=== PATIENT | female | born 1940 | race Caucasian/White ===

== ENCOUNTER 2019-03-15 06:24 | Day surgery (SDC) | payer MEDICARE, BC ==
[~2019-03-15 06:24] MED LIST: CELECOXIB 100 MG CAPSULE PO ONE; FAMOTIDINE 20MG TABLET PO ONE; MECLIZINE 25 MG TABLET PO ONE; METOCLOPRAMIDE 10 MG TABLET PO ONE; VANCOMYCIN 1GM/200ML PREMIX 1 GM/200 ML PIGGYBACK IVPB ONE
[2019-03-15] MEDS ORDERED: PROPOFOL 10 MG/ML VIAL IV ONE (06:25)
[2019-03-15] MEDS ORDERED: MIDAZOLAM HCL 2MG/2ML VIAL IV ONE (06:25)
[2019-03-15] MEDS ORDERED: ROPIVACAINE HCL (NAROPIN) /PF 5MG/ML 20ML VIAL IV ONE (06:25)
[2019-03-15] MEDS ORDERED: LIDOCAINE 2% MDV (20MG/ML) 20ML VIAL IV ONE (06:25)
[2019-03-15] MEDS ORDERED: DEXAMETHASONE 4 MG/ML 1ML VIAL IVP ONE (06:25)
[2019-03-15 07:43] LABS: ABO GROUP A
[2019-03-15 07:44] LABS: ANTIBODY SCREEN NEGATIVE (NEGATIVE); RH TYPE NEGATIVE
[2019-03-15] MEDS ORDERED: RINGERS SOLUTION,LACTATED 1,000 ML IV ONE ×2 (08:46→09:20)
[2019-03-15] MEDS ORDERED: BUPIVACAINE 0.5% W/EPI MPF 30 ML VIAL SQ ONE (09:12)
[2019-03-15] MEDS ORDERED: HYDROMORPHONE HCL 2 MG/ML VIAL IM PRN (10:25)
[2019-03-15] MEDS ORDERED: ONDANSETRON HCL IV 4 MG/2 ML VIAL IVP PRN (10:25)
[2019-03-15] MEDS ORDERED: NALOXONE 0.4 MG/1 ML VIAL IVP PRN (10:25)
[2019-03-15] MEDS ORDERED: DIPHENHYDRAMINE HCL 25 MG CAPSULE PO PRN (10:25)
[2019-03-15] MEDS ORDERED: BISACODYL 10 MG SUPP RC PRN (10:25)
[2019-03-15] MEDS ORDERED: ACETAMINOPHEN W/ CODEINE 300MG/60MG TABLET PO PRN ×2 (10:25)
[2019-03-15] MEDS ORDERED: ZOLPIDEM TARTRATE 5 MG TABLET PO PRN (10:25)
[2019-03-15] MEDS ORDERED: MAGNESIUM HYDROXIDE 30 ML UDC PO PRN (10:25)
[2019-03-15] MEDS ORDERED: AL HYDROX/MAG HYDROX 30ML UD PO PRN (10:25)
[2019-03-15] MEDS ORDERED: ACETAMINOPHEN 325 MG TAB PO PRN (10:25)
[2019-03-15] MEDS ORDERED: KETOROLAC 30 MG/ML VIAL IVP PRN ×2 (10:25)
[2019-03-15] MEDS ORDERED: HYDROCODONE/APAP 10/325 TABLET PO PRN (10:25)
[2019-03-15] MEDS: POTASSIUM CHLORIDE/D5-0.9%NACL 20 MEQ/1,000 ML BAG IV SCH ×2 (13:05→22:53)
--- NOTE | 2019-03-15 15:36 | Rehab Evaluation ---
Patient Information - Patient Information Diagnosis: R knee DJD Ordered Treatment: PT Evaluate and Treat Status: Initial Evaluation Surgery: Yes (R TKA) Date of Surgery: 03/15/19 Past Medical/Surgical Hx: PAST MEDICAL/SURGICAL HISTORY Past Surgical History PAULA C SCOPES BILAT CATS DENTAL WORK PMH - Respiratory Hx Respiratory Disorders Yes Hx Bronchitis Yes: YRS AGO PMH - Cardiovascular Hx Cardiovascular Disorders Yes Hx Hypertension Yes: ON MEDS WITH GOOD CONTROL Hx Irregular Heartbeat Yes: A FIB POSSIBLY IN THE PAST ON ELIQUIS Exercise Tolerance Fair Comment: D/T KNEE HYPERLIPIDEMIA PMH - Neuro Hx Neurological Disorders No PMH - GI Hx Gastrointestinal Disorders No PMH - Hx Genitourinary Disorders No PMH - Endocrine Hx Endocrine Disorders No PMH - Musculoskeletal Hx Musculoskeletal Disorders Yes Hx Arthritis Yes: KNEES Hx Osteoporosis Yes: POSSIBLY PMH - Psych Hx Psychiatric Problems Yes Hx Anxiety Yes PMH - Hematology/Oncology Hx Hematology/Oncology Yes Disorders Hx Bruising Yes: ON ELIQUIS Hx Blood Transfusion Reaction No Premorbid Status: Detail (The patient was independent with all mobility prior to surgery.) Social History: Detail (The patient lives with spouse in a one story house with one step and a threshold at the enterance and a hand hold. The bathroom is equipped with: a tub/shower combination, handheld shower, shower seat, standard toilet with a riser seat. Grab bars are present in shower but not by toilet. The patient has a walker with wheels and standard cane.) Precautions: [place], Fall, Other (WBAT on the R LE.) - Time With Patient Total Time Spent With Patient (Min): 30 Treatment Procedures: Detail (Initial Evaluation, gait training) Subjective Information - Subjective Information Per Patient (The patient slight complaints of R hip pain) Objective Data - Mental Status Patient Orientation: Oriented x3 - Visual Perception Appears within normal limits for therapeutic activities - ROM Not within normal limits (The patient's R knee AROM is limited as to be expected following surgery. All other LE AROM is WNL.) - Strength/Tone Not within normal limits (The patient's L LE strength was not tested s/p surgery however is functional. R LE strength is WFL.) - Transfers Independent (The patient was independent with sit to and from stand transfer.) - Balance Balance Sitting: Good Balance Standing: Good - Gait Detail (The patient ambulated with front wheeled walker a distance of 40 feet x 1 WBAT on the R LE with supervision for safety only.) Therapy Assessment - Therapy Assessment Detail (The patient was independent with transfers and required supervision for safety only with ambulation. Feel the patient will progress well with mobility.) Problem List - Problem List Physical Therapy Problem List: Detail (Limited L knee AROM and L LE strength) Goals - Goals Physical Therapy Goals: 1)The patient will be independent with bed mobility. 2) The patient will be independent with TKA HEP. 3) The patient will ambulate on stairs with supervision for safety using proper technique. Prognosis - Prognosis Good Plan - Plan Physical Therapy Plan: PT 1-2 times a day for gait training on stairs, bed mobility and instruction in TKA HEP.
[2019-03-15] MEDS: VANCOMYCIN 1GM/200ML PREMIX 1 GM/200 ML PIGGYBACK IVPB SCH (18:36)
[2019-03-15] MEDS: DOCUSATE SODIUM 100 MG CAPSULE PO SCH (21:07)
[2019-03-15] MEDS: METOPROLOL SUCCINATE 100 MG PO SCH (21:09)
[2019-03-15] MEDS ORDERED: ATORVASTATIN 20 MG TABLET PO SCH (22:00)
[2019-03-15] MEDS: HYDROCODONE/APAP 10/325 TABLET PO PRN (22:55)
[2019-03-16] MEDS: HYDROCODONE/APAP 10/325 TABLET PO PRN ×2 (05:42→13:44)
[2019-03-16 06:36] LABS: HEMATOCRIT 37.3 % (35.0-47.0); HEMOGLOBIN 11.6 gm/dl (11.6-16.0)
[2019-03-16 06:47] LABS: BLOOD UREA NITROGEN 15 mg/dL (8-23); CREATININE 0.5 mg/dL (0.5-0.9); EST GLOMERULAR FILTRATION RATE > 60 mL/min; GLUCOSE,RANDOM 161 mg/dL (74-109)
[2019-03-16] MEDS: POTASSIUM CHLORIDE/D5-0.9%NACL 20 MEQ/1,000 ML BAG IV SCH (07:49)
--- NOTE | 2019-03-16 07:52 | Rehab Evaluation ---
Patient Information - Patient Information Diagnosis: R knee DJD Ordered Treatment: OT Evaluate and Treat Status: Initial Evaluation Surgery: Yes (R TKA) Date of Surgery: 03/15/19 Past Medical/Surgical Hx: PAST MEDICAL/SURGICAL HISTORY Past Surgical History PAULA C SCOPES BILAT CATS DENTAL WORK PMH - Respiratory Hx Respiratory Disorders Yes Hx Bronchitis Yes: YRS AGO PMH - Cardiovascular Hx Cardiovascular Disorders Yes Hx Hypertension Yes: ON MEDS WITH GOOD CONTROL Hx Irregular Heartbeat Yes: A FIB POSSIBLY IN THE PAST ON ELIQUIS Exercise Tolerance Fair Comment: D/T KNEE HYPERLIPIDEMIA PMH - Neuro Hx Neurological Disorders No PMH - GI Hx Gastrointestinal Disorders No PMH - Hx Genitourinary Disorders No PMH - Endocrine Hx Endocrine Disorders No PMH - Musculoskeletal Hx Musculoskeletal Disorders Yes Hx Arthritis Yes: KNEES Hx Osteoporosis Yes: POSSIBLY PMH - Psych Hx Psychiatric Problems Yes Hx Anxiety Yes PMH - Hematology/Oncology Hx Hematology/Oncology Yes Disorders Hx Bruising Yes: ON ELIQUIS Hx Blood Transfusion Reaction No Premorbid Status: Detail (The patient was independent with all mobility, meal prep, laundry and home mgmt tasks prior to surgery.) Social History: Detail (The patient lives with spouse in a one story house with one step and a threshold at the entrance and a hand hold. The bathroom is equipped with: a tub/shower combination, handheld shower, shower seat, standard toilet with a riser seat. Grab bars are present in shower but not by toilet. The patient has a walker with wheels and standard cane. Her laundry is in the basement but her spouse will be assisting as needed.) Precautions: [place], Fall, Other (WBAT on the R LE.) - Time With Patient Total Time Spent With Patient (Min): 40 Treatment Procedures: Detail (OT eval low complexity) Subjective Information - Subjective Information Per Patient Objective Data - Pain Pain Present: Yes (2-12/12) - Mental Status Patient Orientation: Oriented x3 - Visual Perception Appears within normal limits for therapeutic activities - ROM Within normal limits (Balta UE AROM WNL) - Strength/Tone Within normal limits (Balta UE strength WNL) - Coordination Appears within normal limits for therapeutic activities - Bed Mobility Independent (Ind with supine to sit) - Transfers Independent (Ind with sit to stand although requires verbal cues for technique at times.) - Balance Balance Sitting: Good Balance Standing: Good - Sensation Intact - Gait Detail (Pt ambulating in room with 2 wheeled walker and SBA) - ADL's/IADL's Detail (Pt educated and demonstrates learning of modified LE dressing techniques including doffing briefs and slipper socks and donning briefs, shorts, socks and tennis shoes. Pt educated on kitchen, laundry and shower safety and modifications, pt verbalized understanding.) Therapy Assessment - Therapy Assessment Detail (Pt is Ind with modified LE dressing techniques.) Problem List - Problem List Physical Therapy Problem List: Detail (Limited L knee AROM and L LE strength) Occupational Therapy Problem List: Detail (No current IP OT problems identified.) Goals - Goals Physical Therapy Goals: 1)The patient will be independent with bed mobility. 2) The patient will be independent with TKA HEP. 3) The patient will ambulate on stairs with supervision for safety using proper technique. Occupational Therapy Goals: No current IP OT goals identified. Prognosis - Prognosis Good Plan - Plan Physical Therapy Plan: PT 1-2 times a day for gait training on stairs, bed mobility and instruction in TKA HEP. Occupational Therapy Plan: No further IP OT recommended. Thank you for this referral.
[2019-03-16] MEDS: VANCOMYCIN 1GM/200ML PREMIX 1 GM/200 ML PIGGYBACK IVPB SCH (08:08)
--- NOTE | 2019-03-16 09:40 | Operative Note ---
DATE OF SURGERY: 03/15/2019 PREOPERATIVE DIAGNOSIS: End-stage arthrosis of the right knee. POSTOPERATIVE DIAGNOSIS: End-stage arthrosis of the right knee. OPERATION: Cemented right total knee arthroplasty using [employer] II components with a size 5 cobalt chrome femur, a size 5 stemmed tibia baseplate, a 9 mm lipped tibial insert, and a 32 mm all plastic patella. STAFF SURGEON: Harmeet Shane MD ANESTHESIA: Spinal. PREPARATION: Chloraprep. INDIVIDUAL CONSIDERATIONS: None. PROCEDURE: The patient was taken to the operating room, placed supine on the operating room table. She had a successful induction of a spinal anesthetic. The right lower extremity was prepped and draped in the usual fashion. The limb was elevated and tourniquet was inflated to 250 mmHg. The patient had a midline approach to the knee. Sharp dissection carried down through skin and subcutaneous tissue. Small veins were coagulated with a Bovie. A medial arthrotomy was performed. The patella was everted and the knee was flexed. The patient had exposed bone in the medial and patellofemoral compartments. Fat pad was resected, ACL was sacrificed, and provisional anterior meniscectomies were performed. The capsule was released from the medial proximal tibia. The initial femoral oversize load pilot escort hole was then made freehand. The intramedullary femoral cutting jig was placed. It was cut in 7.0 degrees of valgus and adjusted for rotation and secured with pins for a 10 mm resection. The initial transverse cut was then made. The skin guide was placed in the anterior and posterior oversize load pilot escort holes. It was found that a size 5 would be appropriate. The anterior and posterior cuts followed by chamfer cuts were made. Osteophytes removed, and a size 5 trial was placed and found to fit well. The tibia was brought forward, and the remainder of the meniscal remnants removed with a Bovie. The extraarticular tibial cutting jig was placed. It was cut in neutral with a 3-degree AP slope. Care was taken to adjustefor rotation and flexion using the extraarticular alignment guide and bony landmarks. It was set for a 9 mm resection keyed off the high lateral side and secured with pins. When cutting the tibia, care was taken to preserve the PCL insertion on the tibia. After removing osteophytes, I could fit a size 5 baseplate trial. It was adjusted for rotation and secured with pins. With a 9 mm trial and femoral trial, there was excellent motion and stability, ligamentous balance, and rotation alignment were thought to be normal. The femoral oversize load pilot escort holes were impacted and the tri-flange tibial stamp was impacted, and these trial components were removed. The patient had about a 22 mm patella, and I was easily able to make a cut compensating for bone loss and cartilage loss leaving about 13-14 mm. This cut was made freehand. I was able to easily fit a 32 patella. The 3 oversize load pilot escort holes were drilled. The knee was then thoroughly irrigated out with pulsatile Betadine and saline to remove any visual or palpable debris. The tourniquet was let down briefly to get bleeders posteriorly and then irrigated again. Bony surfaces were then dried. I went ahead and cemented in a size 5 stemmed tibia baseplate followed by impaction of the 9 mm lipped tibial insert followed by cementing in the size 5 cobalt chrome femur followed by cementing in the 32 mm patella. The implant surfaces were compressed, excess cement was removed. After the cement had set, there was excellent motion and stability, ligamentous balance, rotation alignment, and patellofemoral tracking were normal. No lateral release was required. Again thorough irrigation. Tourniquet was let down. Hemostasis was obtained with a Bovie. The capsule and periosteum then infiltrated with 30 mL of 0.5% Marcaine with epinephrine. The capsule was then closed with a running #2 quill, subcu was closed with running 0 quill, skin was closed with argenis. The patient did receive 1 g of tranexamic acid preoperatively. I mixed 1 g of tranexamic acid with 30 mL of saline and injected into the knee through a sterile 18-gauge needle, and a sterile bulky compressive ROBERT-type dressing was applied. The patient tolerated the procedure well. Needle and sponge counts were correct. Estimated blood loss was minimal, and she was taken back to recovery in good condition. There were no complications. CARMEN
[2019-03-16] MEDS: DOCUSATE SODIUM 100 MG CAPSULE PO SCH (09:41)
[2019-03-16] MEDS: METOPROLOL SUCCINATE 100 MG PO SCH ×2 (09:42→12:42)
[2019-03-16] MEDS ORDERED: MULTIVITAMINS/MINERALS TABLET PO SCH (10:00)
[2019-03-16] MEDS ORDERED: CALCIUM CARBONATE 500 MG TAB.CHEW PO SCH (10:00)
[2019-03-16] MEDS ORDERED: APIXABAN 2.5MG TABLET PO SCH (10:00)
[2019-03-16] MEDS ORDERED: FERROUS SULFATE 325 MG TAB PO SCH (10:00)
--- NOTE | 2019-03-16 11:56 | Physical Therapy Tx Note ---
Physical Therapy Tx Note - Treatment Note Tolerated: Good Total Time Spent With Patient: 30 Physical Therapy Tx Note: Detail (Pt was seated in chair when PT arrived. Pt stated that she had a lot of pain today reporting 6/10 pain. Pt ambulated 80ft with front wheeled walker with contact guard. Pt descended and ascended 3 steps with contact guard assist. Pt was indenpendent with bed mobility and with transfers. PT reviewed HEP with patient. Following treatment patient had no change in pain. Pt was left in bed with ice on her knee and with the call light.) Physical Therapy Problem List: Detail (Limited L knee AROM and L LE strength) Physical Therapy Goals: 1)The patient will be independent with bed mobility. 2) The patient will be independent with TKA HEP. 3) The patient will ambulate on stairs with supervision for safety using proper technique. Prognosis: Good Physical Therapy Plan: PT 1-2 times a day for gait training on stairs, bed mobility and instruction in TKA HEP.
== END 2019-03-16 14:40 | disposition home health service (06) ==
LOC: SUR 06:24 → MEDSURG 11:08 → SUR 03-16 14:40
PROVIDERS: ATTEND Orthopaedic Surgery
DX: M17.11 Unilateral primary osteoarthritis, right knee (principal); I10 Essential (primary) hypertension; Z79.01 Long term (current) use of anticoagulants; E78.00 Pure hypercholesterolemia, unspecified; I48.91 Unspecified atrial fibrillation
CPT/HCPCS: 27447; 01402; 64447; 85018; 85014; 80048; 86900; 86901; 86850; 76942; J3490 ×3; J2795; J3370 ×2; 97110; C1776; J3480; J7120

== ENCOUNTER 2019-06-28 08:40 | Day surgery (SDC) | payer MEDICARE, BC ==
[~2019-06-28 08:40] MED LIST changes: +CEFAZOLIN 2 Gram 2 GM/50 ML BAG IVPB ONE
[2019-06-28] MEDS ORDERED: LIDOCAINE 2% MDV (20MG/ML) 20ML VIAL IV ONE (08:41)
[2019-06-28] MEDS ORDERED: MIDAZOLAM HCL 2MG/2ML VIAL IV ONE (08:41)
[2019-06-28] MEDS ORDERED: PROPOFOL 10 MG/ML VIAL IV ONE (08:41)
[2019-06-28] MEDS ORDERED: DEXAMETHASONE 4 MG/ML 1ML VIAL IVP ONE (08:41)
[2019-06-28] MEDS ORDERED: ROPIVACAINE HCL (NAROPIN) /PF 5MG/ML 20ML VIAL IV ONE (08:41)
[2019-06-28] MEDS ORDERED: RINGERS SOLUTION,LACTATED 1,000 ML IV ONE ×2 (09:45→11:27)
[2019-06-28] MEDS ORDERED: TRANEXAMIC ACID 1,000 MG/10 ML ML IU ONE (11:18)
[2019-06-28] MEDS ORDERED: BUPIVACAINE 0.5% W/EPI MPF 30 ML VIAL SQ ONE (11:18)
[2019-06-28] MEDS ORDERED: TRANEXAMIC ACID 1,000 MG/10 ML ML IV ONE (11:18)
[2019-06-28] MEDS ORDERED: ZOLPIDEM TARTRATE 5 MG TABLET PO PRN (12:06)
[2019-06-28] MEDS ORDERED: MAGNESIUM HYDROXIDE 30 ML UDC PO PRN (12:06)
[2019-06-28] MEDS ORDERED: HYDROCODONE/APAP 10/325 TABLET PO PRN (12:06)
[2019-06-28] MEDS ORDERED: NALOXONE 0.4 MG/1 ML VIAL IVP PRN (12:06)
[2019-06-28] MEDS ORDERED: HYDROMORPHONE HCL 2 MG/ML VIAL IM PRN (12:06)
[2019-06-28] MEDS ORDERED: AL HYDROX/MAG HYDROX 30ML UD PO PRN (12:06)
[2019-06-28] MEDS ORDERED: DIPHENHYDRAMINE HCL 25 MG CAPSULE PO PRN (12:06)
[2019-06-28] MEDS ORDERED: ACETAMINOPHEN W/ CODEINE 300MG/60MG TABLET PO PRN ×2 (12:06)
[2019-06-28] MEDS ORDERED: BISACODYL 10 MG SUPP RC PRN (12:06)
[2019-06-28] MEDS ORDERED: ACETAMINOPHEN 325 MG TAB PO PRN (12:06)
[2019-06-28] MEDS ORDERED: KETOROLAC 30 MG/ML VIAL IVP PRN (12:06)
[2019-06-28] MEDS ORDERED: ONDANSETRON HCL IV 4 MG/2 ML VIAL IVP PRN (12:06)
[2019-06-28] MEDS ORDERED: TRAMADOL HCL 50 MG TABLET PO PRN (12:06)
[2019-06-28] MEDS ORDERED: FLU VAC QS 2019-20 (INPT, 6MO+) 60MCG/0.5ML IM ONE (13:30)
[2019-06-28 14:03] LABS: ABO GROUP A; RH TYPE NEGATIVE
[2019-06-28 14:04] LABS: ANTIBODY SCREEN NEGATIVE (NEGATIVE)
--- NOTE | 2019-06-28 14:12 | Rehab Evaluation ---
Patient Information - Patient Information Diagnosis: L knee DJD Ordered Treatment: PT Evaluate and Treat Status: Initial Evaluation Surgery: Yes (L TKA) Date of Surgery: 06/28/19 Past Medical/Surgical Hx: PAST MEDICAL/SURGICAL HISTORY Past Surgical History RTKA 03-15-19 PAULA PÉREZ BILAT CATS DENTAL WORK PMH - Respiratory Hx Respiratory Disorders Yes Hx Bronchitis Yes: YRS AGO PMH - Cardiovascular Hx Cardiovascular Disorders Yes Hx Hypertension Yes: ON MEDS WITH GOOD CONTROL Hx Irregular Heartbeat Yes: A FIB POSSIBLY IN THE PAST ON ELIQUIS Exercise Tolerance Fair Comment: D/T KNEE HYPERLIPIDEMIA PMH - Neuro Hx Neurological Disorders No PMH - GI Hx Gastrointestinal Disorders No PMH - Hx Genitourinary Disorders No PMH - Endocrine Hx Endocrine Disorders No Hx Diabetes No Hx Thyroid Disease No PMH - Musculoskeletal Hx Musculoskeletal Disorders Yes Hx Arthritis Yes: KNEES Hx Osteoporosis Yes: POSSIBLY PMH - Psych Hx Psychiatric Problems Yes Hx Anxiety Yes PMH - Hematology/Oncology Hx Hematology/Oncology Yes Disorders Hx Bruising Yes: ON ELIQUIS Hx Blood Transfusion Reaction No Premorbid Status: Detail (The patient was independent with all mobility prior to surgery.) Social History: Detail (The patient lives with spouse in a 1 story house with 2 steps at the enterance and no handrails. The bathroom is equipped with: a tub/shower combination, hand held shower, standard height toilet. Grab bars are present by the shower but not toilet. The patient's is getting a shower seat and a toilet riser seat. The patient has a front wheeled walker and standard cane.) Precautions: [place], Fall, Other (WBAT on the L LE.) - Time With Patient Treatment Procedures: Detail (Initial Evaluation low complexity) Subjective Information - Subjective Information Per Patient (The patient had complaints of L knee pain. The patient did not rate her pain using the 0-10 pain scale.) Objective Data - Mental Status Patient Orientation: Oriented x3 - Visual Perception Appears within normal limits for therapeutic activities - ROM Not within normal limits (The patient's L knee is limited s/p surgery. All other LE AROM is WNL.) - Strength/Tone Not within normal limits (The patient's L LE strength was not formally tested however was functional ie: patient was able to lift L LE in and out of bed. The patient's R LE strength was WNL.) - Bed Mobility Independent (The patient was independent with supine to and from sit transfer and scooting up in bed.) - Transfers Independent (The patient was independent with sit to and from stand transfer.) - Balance Balance Sitting: Good Balance Standing: Good - Sensation Intact - Gait Detail (The patient ambulated with front wheeled walker WBAT on the L LE with supervision for safety 50 feet x 1.) Therapy Assessment - Therapy Assessment Detail (The patient was independent with bed mobility and transfers. It is anticipated that the patient will complete her inpatient PT goals in 1-2 sessions.) Problem List - Problem List Physical Therapy Problem List: Detail ( Decreased L LE strength and L knee AROM.) Goals - Goals Physical Therapy Goals: 1) The patient will be independent with TKA HEP. 2) The patient will ambulate household distances WBAT on the L LE independently. 3) The patient will ambulate on stairs using proper technique with supervision for safety. Prognosis - Prognosis Good Plan - Plan Physical Therapy Plan: PT for 1-2 sessions for gait training on levels and stairs and instruction in HEP.
[2019-06-28] MEDS: HYDROCODONE/APAP 10/325 TABLET PO PRN ×2 (15:10→21:24)
[2019-06-28] MEDS: POTASSIUM CHLORIDE/D5-0.9%NACL 20 MEQ/1,000 ML BAG IV SCH ×2 (15:15→23:53)
[2019-06-28] MEDS: CEFAZOLIN 2 Gram 2 GM/50 ML BAG IVPB SCH (18:34)
[2019-06-28] MEDS: DOCUSATE SODIUM 100 MG CAPSULE PO SCH (21:24)
[2019-06-28] MEDS ORDERED: ATORVASTATIN 20 MG TABLET PO SCH (22:00)
[2019-06-29] MEDS: CEFAZOLIN 2 Gram 2 GM/50 ML BAG IVPB SCH ×2 (02:22→10:43)
[2019-06-29] MEDS: HYDROCODONE/APAP 10/325 TABLET PO PRN ×3 (02:24→14:28)
[2019-06-29] MEDS: POTASSIUM CHLORIDE/D5-0.9%NACL 20 MEQ/1,000 ML BAG IV SCH (05:40)
[2019-06-29 06:39] LABS: HEMATOCRIT 40.6 % (35.0-47.0); HEMOGLOBIN 12.6 gm/dl (11.6-16.0)
[2019-06-29 06:51] LABS: BLOOD UREA NITROGEN 20 mg/dL (8-23); CREATININE 0.6 mg/dL (0.5-0.9); EST GLOMERULAR FILTRATION RATE > 60 mL/min; GLUCOSE,RANDOM 150 mg/dL (74-109)
[2019-06-29] MEDS: DOCUSATE SODIUM 100 MG CAPSULE PO SCH (09:26)
--- NOTE | 2019-06-29 09:59 | Physical Therapy Tx Note ---
Physical Therapy Tx Note - Treatment Note Tolerated: Good Total Time Spent With Patient: 20 Physical Therapy Tx Note: Detail (Patient stated that she was having some pain in the L knee today. She ambulated 60 feet with WBAT on the L LE with supervision. Patient was independent in completing her HEP, and correctly demonstrated HEP exercises. Patient was not able to complete stair training this morning due to pain, so she will be seen this afternoon to complete stair t raining to be discharged from inpatient therapy. Patient was left in the bed with her call light and bedside table within reach. The nursing staff was notified of her position.) Physical Therapy Problem List: Detail ( Decreased L LE strength and L knee AROM.) Physical Therapy Goals: 1) The patient will be independent with TKA HEP. GOAL MET. 2) The patient will ambulate household distances WBAT on the L LE independently. GOAL MET. 3) The patient will ambulate on stairs using proper technique with supervision for safety. Prognosis: Good Physical Therapy Plan: PT for 1-2 sessions for gait training on levels and stairs and instruction in HEP.
[2019-06-29] MEDS ORDERED: METOPROLOL SUCC 50 MG TABLET PO SCH (10:00)
[2019-06-29] MEDS ORDERED: APIXABAN 2.5MG TABLET PO SCH (10:00)
[2019-06-29] MEDS ORDERED: CALCIUM CARBONATE 500 MG TAB.CHEW PO SCH (10:00)
[2019-06-29] MEDS ORDERED: FERROUS SULFATE 325 MG TAB PO SCH (10:00)
[2019-06-29] MEDS ORDERED: MULTIVITAMINS/MINERALS TABLET PO SCH (10:00)
--- NOTE | 2019-06-29 10:38 | Rehab Evaluation ---
Patient Information - Patient Information Diagnosis: L knee DJD Ordered Treatment: OT Evaluate and Treat Status: Initial Evaluation Surgery: Yes (L TKA) Date of Surgery: 06/28/19 Past Medical/Surgical Hx: PAST MEDICAL/SURGICAL HISTORY Past Surgical History RTKA 03-15-19 PAULA PÉREZ BILAT CATS DENTAL WORK PMH - Respiratory Hx Respiratory Disorders Yes Hx Bronchitis Yes: YRS AGO PMH - Cardiovascular Hx Cardiovascular Disorders Yes Hx Hypertension Yes: ON MEDS WITH GOOD CONTROL Hx Irregular Heartbeat Yes: A FIB POSSIBLY IN THE PAST ON ELIQUIS Exercise Tolerance Fair Comment: D/T KNEE HYPERLIPIDEMIA PMH - Neuro Hx Neurological Disorders No PMH - GI Hx Gastrointestinal Disorders No PMH - Hx Genitourinary Disorders No PMH - Endocrine Hx Endocrine Disorders No Hx Diabetes No Hx Thyroid Disease No PMH - Musculoskeletal Hx Musculoskeletal Disorders Yes Hx Arthritis Yes: KNEES Hx Osteoporosis Yes: POSSIBLY PMH - Psych Hx Psychiatric Problems Yes Hx Anxiety Yes PMH - Hematology/Oncology Hx Hematology/Oncology Yes Disorders Hx Bruising Yes: ON ELIQUIS Hx Blood Transfusion Reaction No Premorbid Status: Detail (The patient was independent with all mobility, meal prep, laundry and home mgmt prior to surgery.) Social History: Detail (The patient lives with spouse in a 1 story house with 2 steps at the entrance and no handrails. The bathroom is equipped with: a tub/shower combination, hand held shower and standard height toilet. Grab bars are present in the shower but not by the toilet. The patient's is getting a shower seat and a toilet riser seat. The patient has a front wheeled walker and standard cane.) Precautions: [place], Fall, Other (WBAT on the L LE.) - Time With Patient Total Time Spent With Patient (Min): 40 Treatment Procedures: Detail (OT eval low complexity) Subjective Information - Subjective Information Per Patient Objective Data - Pain Pain Present: Yes (11/14) - Mental Status Patient Orientation: Oriented x3 - Visual Perception Appears within normal limits for therapeutic activities - ROM Within normal limits (Balta UE AROM WNL) - Strength/Tone Within normal limits (Balta UE strength WNL) - Coordination Appears within normal limits for therapeutic activities - Bed Mobility Independent (Ind with supine to sit) - Transfers Independent (Ind with sit to stand from EOB) - Balance Balance Sitting: Good Balance Standing: Good - Sensation Intact - Gait Detail (Pt ambulating in room with 2 wheeled walker with SBA) - ADL's/IADL's Detail (Pt educated and able to demonstrate learning of modified LE dressing techniques including donning snehal sock (with assist), shorts, socks and tennis shoes. Pt was educated on kitchen and shower safety and modifications, she was able to verbalize understanding.) Therapy Assessment - Therapy Assessment Detail (Pt is Ind with modified LE dressing techniques.) Problem List - Problem List Physical Therapy Problem List: Detail ( Decreased L LE strength and L knee AROM.) Occupational Therapy Problem List: Detail (No current IP OT problems identified.) Goals - Goals Physical Therapy Goals: 1) The patient will be independent with TKA HEP. GOAL MET. 2) The patient will ambulate household distances WBAT on the L LE independently. GOAL MET. 3) The patient will ambulate on stairs using proper technique with supervision for safety. Occupational Therapy Goals: No current IP OT goals identified. Prognosis - Prognosis Good Plan - Plan Physical Therapy Plan: PT for 1-2 sessions for gait training on levels and stairs and instruction in HEP. Occupational Therapy Plan: No further IP OT recommended. Thank you for this referral.
--- NOTE | 2019-06-29 12:52 | Physical Therapy Tx Note ---
Physical Therapy Tx Note - Treatment Note Tolerated: Good Total Time Spent With Patient: 15 Physical Therapy Tx Note: Detail (Patient stated that she was feeling better this afternoon and her pain was under better control. Patient was able to ambulate 120 feet with a front-wheeled walker independently using WBAT on L LE. She completed stair training and was able to successfully ascend and descend 3 stairs. Patient has met all inpatient goals at this time. She was left in the beside chair with the call light and bedside table within reach. The nursing staff was notified of her position and status.) Physical Therapy Problem List: Detail ( Decreased L LE strength and L knee AROM.) Physical Therapy Goals: 1) The patient will be independent with TKA HEP. GOAL MET. 2) The patient will ambulate household distances WBAT on the L LE independently. GOAL MET. 3) The patient will ambulate on stairs using proper technique with supervision for safety. GOAL MET Prognosis: Good Physical Therapy Plan: Patient has met all inpatient goals at this time. She will continued to be seen for therapy through home health.
--- NOTE | 2019-06-29 14:50 | Operative Note ---
DATE OF SURGERY: 06/28/2019 PREOPERATIVE DIAGNOSIS: End-stage arthrosis of the left knee. POSTOPERATIVE DIAGNOSIS: End-stage arthrosis of the left knee. OPERATION: Cemented left total knee arthroplasty using [employer] components with a size 5 cobalt chrome femur, a size 4 stemmed tibia baseplate, a 9 mm lipped tibial insert, and a 35 mm all-plastic patella. STAFF SURGEON: Harmeet Shane MD ANESTHESIA: Spinal. PREPARATION: Chloraprep. INDIVIDUAL CONSIDERATIONS: None. PROCEDURE: The patient was taken to the operating room, placed supine on the operating room table. She had a successful induction of a spinal anesthetic. The left lower extremity was prepped and draped in the usual fashion. The limb was elevated and tourniquet was inflated to 250 mmHg. The patient had a midline approach to the knee. Sharp dissection carried down through skin and subcutaneous tissue. Small veins were coagulated with a Bovie. A medial arthrotomy was performed. The patella was everted and the knee was flexed. The patient had exposed bone in the medial and patellofemoral compartments. Fat pad was resected, ACL was sacrificed, and provisional anterior meniscectomies were performed. The capsule was released from the medial proximal tibia. The initial femoral drone pilot hole was then made freehand. The intramedullary femoral cutting jig was placed. It was cut in 7.0 degrees of valgus and adjusted for rotation and secured with pins for a 10 mm resection. The initial transverse cut was then made. The skin guide was placed in the anterior and posterior drone pilot holes. It was found that a size 5 would be appropriate. The anterior and posterior cuts followed by chamfer cuts were made. Osteophytes removed, and a size 5 trial was placed and found to fit well. The tibia was brought forward, and the remainder of the meniscal remnants removed with a Bovie. The extraarticular tibial cutting jig was placed. It was cut in neutral with a 3-degree AP slope. It was set for a 9 mm resection keyed off the high lateral side and secured with pins. When cutting the tibia, care was taken to preserve the PCL insertion on the tibia. After removing osteophytes, I could fit a size 4. It was adjusted for rotation and secured with pins. With a 9 mm trial and femoral trial, there was excellent motion and stability, ligamentous balance, and rotation alignment, and patellofemoral tracking were normal. No lateral release was required. The tourniquet was let down briefly to get bleeders posteriorly and then placed back up again. The patient had a relatively thick patella and roughly 9 mm of bone was removed freehand with an oscillating saw. I could fit a 35 patella, and the 3 drone pilot holes were drilled. Thorough irrigation now with pulsatile Betadine and saline to remove any visual or palpable debris. Bony surfaces were then dried. A size 4 stemmed tibia baseplate was cemented into place followed by impaction of the 9 mm lipped tibial insert followed by cementing in the size 5 cobalt chrome femur followed by cementing in the 35 mm patella. The implant surfaces were compressed, excess cement was removed. After the cement had set, there was excellent motion and stability, ligamentous balance, rotation alignment, and patellofemoral tracking were normal. No lateral release was required. Again thorough irrigation. Tourniquet was let down. Hemostasis was obtained with a Bovie. The periosteum, skin, and subcutaneous tissue were infiltrated with 30 mL of 0.5% Marcaine with epinephrine. The capsule was then closed with a running #2 quill, subcu was closed in layers with running 0 quill, skin was closed with argenis. The patient was injected with 30 mL of saline mixed with 1 g of tranexamic acid, and a sterile bulky compressive ROBERT-type dressing was applied. The patient tolerated the procedure well. Needle and sponge counts were correct. Estimated blood loss was minimal, and she was taken back to recovery in good condition. There were no complications. CARMEN
== END 2019-06-29 14:30 | disposition home health service (06) ==
LOC: SUR 08:40 → MEDSURG 13:16 → SUR 06-29 14:30
PROVIDERS: ATTEND Orthopaedic Surgery
DX: M17.12 Unilateral primary osteoarthritis, left knee (principal); I10 Essential (primary) hypertension; I48.91 Unspecified atrial fibrillation; Z79.01 Long term (current) use of anticoagulants; E78.00 Pure hypercholesterolemia, unspecified; Z23 Encounter for immunization
CPT/HCPCS: 27447; 01402; 64447; 85018; 85014; 80048; 86900; 86901; 86850; 90686; 76942; C1776 ×2; G0008; J1885; J0690 ×2; J3490 ×3; J2795; J3370; J3480; J7120